=== PATIENT | female | born 1960 | race Caucasian/White ===

== ENCOUNTER 2018-09-23 02:28 | Outpatient (CLI) | payer BC ==
[~2018-09-23 02:28] MED LIST: ATOR10TA87 PO; BENA5TAB7 PO; CITA20TA28 PO; INSU100C4 SUBCUT; LANTUS SUBCUT; LYR25C PO; PIOG15TA8 PO; SYN0.025T PO
== END 2018-09-23 23:59 | disposition home or self-care (01) ==
LOC: DIABETIC 02:28
PROVIDERS: ATTEND Specialist
DX: E11.65 Type 2 diabetes mellitus with hyperglycemia (principal); Z79.4 Long term (current) use of insulin
CPT/HCPCS: G0108

== ENCOUNTER 2019-01-27 04:47 | Outpatient (CLI) | payer BC ==
[2019-04-17] MEDS ORDERED: GLYB5TAB7 PO (10:40)
[2019-04-17] MEDS ORDERED: DULA1.5P SQ (10:40)
[2019-04-17] MEDS ORDERED: ROSU40TA PO (10:40)
[2019-04-17] MEDS ORDERED: CANA100T PO (10:40)
[2019-04-17] MEDS ORDERED: LANTUS SQ (10:40)
[2019-04-17] MEDS ORDERED: PANT-47 PO (10:40)
[2019-04-17] MEDS ORDERED: DULO-31 PO (10:40)
== END 2019-01-27 23:59 | disposition home or self-care (01) ==
LOC: DIABETIC 04:47
PROVIDERS: ATTEND Specialist
DX: E11.65 Type 2 diabetes mellitus with hyperglycemia (principal); Z79.4 Long term (current) use of insulin; Z79.899 Other long term (current) drug therapy
CPT/HCPCS: G0108

== ENCOUNTER 2019-04-24 05:14 | Day surgery (SDC) | payer BC ==
[2019-04-17 10:44] LABS: BASOPHILS # (AUTO) 0.1 X10'3 (0-0.2); BASOPHILS % (AUTO) 1.1 % (0-1); EOSINOPHILS # (AUTO) 0.2 X10'3 (0-0.9); EOSINOPHILS % (AUTO) 2.5 % (0-6); LYMPHOCYTES # (AUTO) 1.6 X10'3 (1.1-4.8); LYMPHOCYTES % (AUTO) 26.8 % (21-51); MEAN CORPUSCULAR HEMOGLOBIN 31.7 PG (27.0-31.0); MEAN CORPUSCULAR HGB CONC 33.1 g/dL (33.0-36.5); MEAN CORPUSCULAR VOLUME 95.8 FL (78-98); MEAN PLATELET VOLUME 8.6 FL (7.4-10.4); MONOCYTES # (AUTO) 0.4 X10'3 (0-0.9); MONOCYTES % (AUTO) 6.5 % (2-12); NEUTROPHILS # (AUTO) 3.8 X10'3 (1.8-7.7); NEUTROPHILS % (AUTO) 63.1 % (42-75); PRE OP HEMOGLOBIN 13.6 g/dL (12.0-16.0); PRE OP PLATELET COUNT 256 X10'3 (140-440); RED BLOOD COUNT 4.27 X10'6 (4.20-5.60); RED CELL DISTRIBUTION WIDTH 14.3 % (11.5-14.5)
[2019-04-17 11:02] LABS: ALBUMIN 4.2 G/DL (3.4-5.0); ALKALINE PHOSPHATASE 73 IU/L (46-116); BLOOD UREA NITROGEN 16 MG/DL (7-18); BUN/CREATININE RATIO 17.4 (6.6-38.0); CALCIUM 9.3 MG/DL (8.5-10.1); CHLORIDE 101 MMOL/L (99-107); CREATININE 0.92 MG/DL (0.40-0.90); PRE OP ALT 30 U/L (30-65); PRE OP ANION GAP 11 (8-16); PRE OP AST 25 U/L (10-37); PRE OP BILIRUB, TOTAL 0.5 MG/DL (0.0-1.0); PRE OP POTASSIUM 3.7 MMOL/L (3.4-5.1); PRE OP SODIUM 139 MMOL/L (135-145); TOTAL CARBON DIOXIDE 26.6 MMOL/L (24-32); TOTAL PROTEIN 8.3 G/DL (6.4-8.2); eGFR 62 ML/MIN
[2019-04-17 11:04] LABS: PRE OP GLUCOSE 47 MG/DL (70-104)
[~2019-04-24] VITALS: Ht 157.5 cm; Wt 99.2 kg
[2019-04-24] VITALS (7 sets, daily range): BP systolic 107–119; BP diastolic 61–85
[~2019-04-24 05:14] MED LIST changes: -ATOR10TA87 PO; +CANA100T PO; -CITA20TA28 PO; +DULA1.5P SQ; +DULO-31 PO; +GLYB5TAB7 PO; -INSU100C4 SUBCUT; +LANTUS SQ; -LANTUS SUBCUT; -LYR25C PO; +PANT-47 PO; +ROSU40TA PO; +ringers solution, lacted 1,000 ML IV SCH
[2019-04-24] MEDS ORDERED: famotidine 20mg tablet PO ONE (05:30)
[2019-04-24] MEDS ORDERED: cefazolin/dext.iso 2gm/50ml 50 ML IV ONE (05:30)
[2019-04-24] MEDS ORDERED: LIDOcaine 1% (10mg/ml) 2ml vial ONE (05:50)
[2019-04-24] MEDS ORDERED: BUPIVAcaine/PF 2.5mg/ml (0.25%) 10ml vial ONE (07:11)
[2019-04-24] MEDS ORDERED: LIDOcaine 1% 30ml preserv. free vial ONE (07:36)
[2019-04-24] MEDS ORDERED: MIDAZolam 5mg/5ml vial ONE (07:37)
[2019-04-24] MEDS ORDERED: fentaNYL/PF 50MCG/1 ML 2ML syringe ONE (07:37)
[2019-04-24] MEDS ORDERED: ketorolac trometh. 30mg/ml inj. ONE (07:47)
--- NOTE | 2019-04-24 08:09 | NUR ---
Received from OR via [facility], accompanied by Anesthesiologist DR ESPINOZA and report given by Anesthesiologist. PT DROWSY, DENIES PAIN, LEFT HAND W/AMADEO WRAP COVERING INCISION, CDI. 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 Addendum: 04/24/19 at 0823 by Gifty Crook RN Amended: Links added.
[2019-04-24] MEDS ORDERED: ringers solution, lacted 1,000 ML IV SCH (08:12)
[2019-04-24] MEDS ORDERED: ondansetron/PF 4mg/2ml inj IV PRN (08:15)
[2019-04-24] MEDS ORDERED: morphine 4 MG/ML inj SYRINge IV PRN ×2 (08:15)
[2019-04-24] MEDS ORDERED: meperidine/PF 25mg/ml syringe IV PRN ×3 (08:15)
[2019-04-24] MEDS ORDERED: proCHLORperazine 10 MG/2 ml inj IV PRN (08:15)
--- NOTE | 2019-04-24 09:09 | NUR ---
D/C INSTRUCTIONS GIVEN AND GONE OVER W/PT WHO VERBALIZED UNDERSTANDING, PT D/CD TO HOME W/FRIEND VIA W/C TO PRIVATE VEHICLE W/O INCIDENT. Addendum: 04/24/19 at 0926 by Gifty Crook RN Amended: Links added.
== END 2019-04-24 09:09 | disposition home or self-care (01) ==
LOC: PAS 05:14
PROVIDERS: ATTEND Orthopaedic Surgery Hand Surgery
DX: M65.332 Trigger finger, left middle finger (principal); M65.342 Trigger finger, left ring finger; I10 Essential (primary) hypertension; K21.9 Gastro-esophageal reflux disease without esophagitis; F32.9 Major depressive disorder, single episode, unspecified; E11.40 Type 2 diabetes mellitus with diabetic neuropathy, unspecified; E66.9 Obesity, unspecified; Z68.41 Body mass index [BMI] 40.0-44.9, adult; Z98.890 Other specified postprocedural states; Z79.4 Long term (current) use of insulin; Z79.899 Other long term (current) drug therapy; Z98.41 Cataract extraction status, right eye; Z98.42 Cataract extraction status, left eye
CPT/HCPCS: 26055; 36415; 80053; 82948; 85025; 93005; J1885; J2001; J2250; J3010; J3490; A4215; J7120

== ENCOUNTER 2022-06-27 12:52 | Inpatient (IN) | payer BC ==
[~2022-06-27] VITALS: Ht 157.5 cm; Wt 86.4 kg
[~2022-06-27 12:52] MED LIST changes: +AMOX-580 PO; +BENA5TAB39 PO; -BENA5TAB7 PO; +METF500T PO; +POTA-206 PO; -ringers solution, lacted 1,000 ML IV SCH
[2022-06-27] MEDS ORDERED: ondansetron/PF 4mg/2ml inj IV ONE (19:05)
[2022-06-27 19:33] LABS: BASOPHILS # (AUTO) 0.1 X10'3 (0-0.2); BASOPHILS % (AUTO) 0.9 % (0-1); EOSINOPHILS # (AUTO) 0.2 X10'3 (0-0.9); EOSINOPHILS % (AUTO) 2.6 % (0-6); HEMATOCRIT 41.9 % (35.0-45.0); HEMOGLOBIN 13.4 g/dl (12.0-16.0); LYMPHOCYTES # (AUTO) 1.1 X10'3 (1.1-4.8); LYMPHOCYTES % (AUTO) 15.3 % (21-51); MEAN CORPUSCULAR HEMOGLOBIN 31.4 PG (27.0-31.0); MEAN CORPUSCULAR HGB CONC 32.1 g/dL (33.0-36.5); MONOCYTES # (AUTO) 0.5 X10'3 (0-0.9); MONOCYTES % (AUTO) 6.9 % (2-12); NEUTROPHILS # (AUTO) 5.5 X10'3 (1.8-7.7); NEUTROPHILS % (AUTO) 74.3 % (42-75); PLATELET COUNT 231 X10'3 (140-440); RED BLOOD COUNT 4.28 X10'6 (4.20-5.60); RED CELL DISTRIBUTION WIDTH 18.2 % (11.5-14.5); WHITE BLOOD COUNT 7.4 X10'3 (4.5-11.0)
--- NOTE | 2022-06-27 19:34 | NUR ---
Patient unable to leave urine sample at 1934. Will try after IV fluids given. Verbal order for IV insertion and fluids, 1 liter per provider.
--- NOTE | 2022-06-27 19:35 | NUR ---
Ok to speak to patients and daughter about patient condition, per patient 06/27/2022 @[id number].
[2022-06-27 19:47] LABS: CHLORIDE 92 MMOL/L (99-107); GLUCOSE 173 MG/DL (70-104); SODIUM 130 MMOL/L (135-145)
[2022-06-27 19:48] LABS: ALANINE AMINOTRANSFERASE 49 U/L (12-78); ALBUMIN 3.7 G/DL (3.4-5.0); ALBUMIN/GLOBULIN RATIO 0.9 (1.1-1.5); ALKALINE PHOSPHATASE 110 IU/L (46-116); ANION GAP 23 (8-16); ASPARTATE AMINO TRANSFERASE 42 U/L (10-37); BILIRUBIN,TOTAL 0.7 MG/DL (0.1-1.0); BLOOD UREA NITROGEN 14 MG/DL (7-18); BUN/CREATININE RATIO 10.1 (6.6-38.0); CALCIUM 9.5 MG/DL (8.5-10.1); CREATININE 1.39 MG/DL (0.40-0.90); LIPASE < 50 U/L (73-393); TOTAL PROTEIN 7.9 G/DL (6.4-8.2); eGFR 38 ML/MIN
[2022-06-27] MEDS ORDERED: ondansetron 4mg rapidly disintigrating tab PO ONE (20:05)
[2022-06-27 20:14] LABS: ABG BASE EXCESS -8.9 mmol/L (-2.0-2.0); ABG HCO3 15.5 mmol/L (22.0-26.0); ABG OXYGEN SATURATION 95.7 % (94-97); ABG PCO2 (T) 29.3 mmHg (32.0-45.0); ABG PO2 (T) 88.5 mmHg (75.0-100.0); ALLEN'S TEST POSITIVE; FCOHb 0.5 % (0.0-3.9); FMetHb 0.3 % (0.0-1.5); FO2Hb 94.9 % (94-97); TOTAL HEMOGLOBIN 13.3 G/dl (12.0-16.0)
--- NOTE | 2022-06-27 20:14 | NUR ---
Violeta Walls, sister Deangelo Worley, brother
[2022-06-27] MEDS ORDERED: normal saline 1000ML IV soln IV ONE (20:35)
[2022-06-27 21:43] LABS: COLOR,URINE YELLOW (Yellow); GLUCOSE, URINE >=1000 mg/dl (Neg); KETONES,URINE 40 mg/dl (Neg); LEUKOCYTE ESTERASE ,URINE NEGATIVE (Neg); NITRITES, URINE NEGATIVE (Neg); OCCULT BLOOD,URINE TRACE-INTACT (Neg); PROTEIN,URINE NEGATIVE (Neg); UROBILINOGEN,URINE 0.2 E.U/dL (0.2-1.0)
[2022-06-27 21:54] LABS: UA COLLECTION TYPE STRAIGHT CATH
[2022-06-27 21:56] LABS: BACTERIA,URINE FEW /HPF (Neg); SQUAMOUS EPITHELIAL CELL,UR FEW /LPF (FEW)
[2022-06-27 21:57] LABS: CLARITY,URINE SLIGHTLY CLOUDY (Clear)
[2022-06-27 21:59] LABS: YEAST FEW /HPF (NEGATIVE)
[2022-06-27] MEDS ORDERED: cephalexin 250mg capsule PO ONE (22:20)
[2022-06-27] MEDS ORDERED: ringers solution, lactated 1000ml IV soln IV ONE (22:20)
[2022-06-27 23:49] LABS: ALANINE AMINOTRANSFERASE 36 U/L (12-78); ALBUMIN 3.2 G/DL (3.4-5.0); ALBUMIN/GLOBULIN RATIO 0.9 (1.1-1.5); ALKALINE PHOSPHATASE 99 IU/L (46-116); ANION GAP 20 (8-16); ASPARTATE AMINO TRANSFERASE 42 U/L (10-37); BILIRUBIN,TOTAL 0.6 MG/DL (0.1-1.0); BLOOD UREA NITROGEN 14 MG/DL (7-18); BUN/CREATININE RATIO 11.3 (6.6-38.0); CALCIUM 8.4 MG/DL (8.5-10.1); CHLORIDE 98 MMOL/L (99-107); CREATININE 1.24 MG/DL (0.40-0.90); GLUCOSE 201 MG/DL (70-104); POTASSIUM 4.2 MMOL/L (3.5-5.1); SODIUM 135 MMOL/L (135-145); TOTAL CARBON DIOXIDE 17.2 MMOL/L (24-32); TOTAL PROTEIN 6.8 G/DL (6.4-8.2); eGFR 44 ML/MIN
[2022-06-28] MEDS ORDERED: potassium Cl 20 mEq SR tablet PO PRN (02:15)
[2022-06-28] MEDS ORDERED: mag hydrox/Alum hydrox/simeth 30ml oral suspension PO PRN (02:15)
[2022-06-28] MEDS ORDERED: magnesium 4gm in 100ml NS 100 ML IV PRN (02:15)
[2022-06-28] MEDS ORDERED: potassium Cl 40MEQ/1/2NS 520ml 520 ML IV PRN (02:15)
[2022-06-28] MEDS ORDERED: magnesium hydroxide 30ml (MOM) UD suspension PO PRN (02:15)
[2022-06-28] MEDS ORDERED: magnesium Cl slow-release 64mg tablet PO PRN (02:15)
[2022-06-28] MEDS ORDERED: acetaminophen 325mg tablet PO PRN (02:15)
[2022-06-28] MEDS ORDERED: glucagon, human recombinant 1mg kit SUBCUT PRN (02:20)
[2022-06-28] MEDS ORDERED: DEXTROSE 15 GM of carb/4 tabs (each vial/BOTTLE has 4 tablets) PO PRN ×2 (02:20)
[2022-06-28] MEDS ORDERED: MESSAGE TO PHARMACY PO ONE (02:20)
[2022-06-28] MEDS ORDERED: dextrose 50%-water 50ml dispensing syringe IV PRN ×2 (02:20)
[2022-06-28] MEDS: normal saline 1000ml 1,000 ML IV SCH ×3 (02:49→23:15)
[2022-06-28 03:53] LABS: POTASSIUM 4.1 MMOL/L (3.5-5.1)
[2022-06-28 03:54] LABS: MAGNESIUM 1.6 MG/DL (1.5-2.4)
[2022-06-28] MEDS ORDERED: SEMA1PEN3 SUBCUT (04:59)
[2022-06-28] MEDS ORDERED: PROC10TA10 PO (04:59)
[2022-06-28] MEDS ORDERED: EMPA1TAB7 PO (04:59)
[2022-06-28] MEDS ORDERED: CYAN500T71 PO (04:59)
[2022-06-28] MEDS: ondansetron/PF 4mg/2ml inj IV PRN (07:49)
[2022-06-28 08:00] VITALS: BP 106/65
[2022-06-28] MEDS: docusate sod 100mg capsule PO SCH ×2 (08:00→20:00)
[2022-06-28] MEDS: heparin, porcine 5000 units/ml vial SQ SCH ×2 (08:00→20:17)
[2022-06-28] MEDS: K and/or MAG REPLACEMENT MC SCH ×2 (08:00→19:56)
[2022-06-28 11:14] LABS: BASOPHILS # (AUTO) 0.1 X10'3 (0-0.2); EOSINOPHILS # (AUTO) 0.2 X10'3 (0-0.9); EOSINOPHILS % (AUTO) 4.6 % (0-6); HEMATOCRIT 31.7 % (35.0-45.0); HEMOGLOBIN 10.4 g/dl (12.0-16.0); LYMPHOCYTES # (AUTO) 1.1 X10'3 (1.1-4.8); LYMPHOCYTES % (AUTO) 20.8 % (21-51); MEAN CORPUSCULAR HEMOGLOBIN 31.7 PG (27.0-31.0); MEAN CORPUSCULAR HGB CONC 32.8 g/dL (33.0-36.5); MEAN CORPUSCULAR VOLUME 96.5 FL (78-98); MEAN PLATELET VOLUME 8.9 FL (7.4-10.4); MONOCYTES # (AUTO) 0.4 X10'3 (0-0.9); NEUTROPHILS # (AUTO) 3.5 X10'3 (1.8-7.7); NEUTROPHILS % (AUTO) 65.6 % (42-75); PLATELET COUNT 197 X10'3 (140-440); RED BLOOD COUNT 3.28 X10'6 (4.20-5.60); RED CELL DISTRIBUTION WIDTH 18.2 % (11.5-14.5); WHITE BLOOD COUNT 5.4 X10'3 (4.5-11.0)
[2022-06-28 11:30] LABS: ALANINE AMINOTRANSFERASE 34 U/L (12-78); ALBUMIN 2.8 G/DL (3.4-5.0); ALBUMIN/GLOBULIN RATIO 0.9 (1.1-1.5); ALKALINE PHOSPHATASE 83 IU/L (46-116); ANION GAP 18 (8-16); ASPARTATE AMINO TRANSFERASE 30 U/L (10-37); BILIRUBIN,TOTAL 0.5 MG/DL (0.1-1.0); BLOOD UREA NITROGEN 10 MG/DL (7-18); BUN/CREATININE RATIO 8.7 (6.6-38.0); CALCIUM 8.1 MG/DL (8.5-10.1); CHLORIDE 99 MMOL/L (99-107); CREATININE 1.15 MG/DL (0.40-0.90); GLUCOSE 188 MG/DL (70-104); POTASSIUM 3.9 MMOL/L (3.5-5.1); SODIUM 135 MMOL/L (135-145); TOTAL CARBON DIOXIDE 18.3 MMOL/L (24-32); eGFR 48 ML/MIN
[2022-06-28] MEDS ORDERED: scopolamine 1.5mg patch.TD72 (72-hour patch) TD SCH (13:15)
[2022-06-28] MEDS ORDERED: scopolamine 1mg/72 hr patch TD SCH (13:35)
[2022-06-28 15:00] VITALS: BP 102/62
--- NOTE | 2022-06-28 17:48 | NUR ---
pt was scheduled to have her chemo treatment today as an outpatient. confirmed with pt's spouse that he called and notified them that pt is in the hospital and unable to make it to her appointment.
[2022-06-28 18:00] VITALS: BP 98/65
--- NOTE | 2022-06-28 18:21 | NUR ---
Patient in room PCU 3018. I have received report from LIZETH XAVIER and had the opportunity to ask questions and assume patient care.
[2022-06-28] MEDS: insulin Lispro (HumaLOG) vial - multi-dose SQ SCH (19:11)
[2022-06-28] MEDS: proCHLORperazine 10 MG/2 ml inj IV PRN (20:20)
[2022-06-28] MEDS ORDERED: insulin glargine (Lantus) pen - multi-dose SQ SCH (21:00)
[2022-06-28] MEDS: insulin glargine (Lantus) pen - multi-dose SQ SCH (21:46)
[2022-06-28 22:00] VITALS: BP 104/69
[2022-06-29 02:00] VITALS: BP 109/54
[2022-06-29] MEDS: diphenhydrAMINE 25mg capsule PO PRN ×2 (03:21→18:54)
[2022-06-29 03:54] LABS: BASOPHILS # (AUTO) 0.1 X10'3 (0-0.2); MONOCYTES # (AUTO) 0.3 X10'3 (0-0.9); RED CELL DISTRIBUTION WIDTH 18.1 % (11.5-14.5)
[2022-06-29 03:55] LABS: % IRON SATURATION 26 % (11-46); BASOPHILS % (AUTO) 1.4 % (0-1); EOSINOPHILS # (AUTO) 0.2 X10'3 (0-0.9); EOSINOPHILS % (AUTO) 4.9 % (0-6); HEMOGLOBIN 9.9 g/dl (12.0-16.0); IRON 60 UG/DL (49-151); LYMPHOCYTES # (AUTO) 1.3 X10'3 (1.1-4.8); LYMPHOCYTES % (AUTO) 29.5 % (21-51); MEAN CORPUSCULAR HEMOGLOBIN 31.4 PG (27.0-31.0); MEAN CORPUSCULAR HGB CONC 32.9 g/dL (33.0-36.5); MEAN CORPUSCULAR VOLUME 95.5 FL (78-98); MEAN PLATELET VOLUME 8.9 FL (7.4-10.4); MONOCYTES % (AUTO) 6.2 % (2-12); NEUTROPHILS # (AUTO) 2.5 X10'3 (1.8-7.7); PLATELET COUNT 176 X10'3 (140-440); RED BLOOD COUNT 3.14 X10'6 (4.20-5.60); TOTAL IRON BINDING CAPACITY 227 UG/DL (259-388); WHITE BLOOD COUNT 4.2 X10'3 (4.5-11.0)
[2022-06-29 03:57] LABS: ALANINE AMINOTRANSFERASE 23 U/L (12-78); ALBUMIN 2.7 G/DL (3.4-5.0); ALBUMIN/GLOBULIN RATIO 0.9 (1.1-1.5); ALKALINE PHOSPHATASE 79 IU/L (46-116); ANION GAP 12 (8-16); ASPARTATE AMINO TRANSFERASE 29 U/L (10-37); BILIRUBIN,TOTAL 0.6 MG/DL (0.1-1.0); BLOOD UREA NITROGEN 6 MG/DL (7-18); BUN/CREATININE RATIO 5.8 (6.6-38.0); CALCIUM 7.8 MG/DL (8.5-10.1); CHLORIDE 102 MMOL/L (99-107); CREATININE 1.04 MG/DL (0.40-0.90); GLUCOSE 102 MG/DL (70-104); MAGNESIUM 1.3 MG/DL (1.5-2.4); POTASSIUM 3.1 MMOL/L (3.5-5.1); SODIUM 135 MMOL/L (135-145); TOTAL CARBON DIOXIDE 20.9 MMOL/L (24-32); TOTAL PROTEIN 5.6 G/DL (6.4-8.2); eGFR 53 ML/MIN
[2022-06-29] MEDS: potassium Cl 20 mEq SR tablet PO PRN ×2 (04:07→19:07)
[2022-06-29 06:00] VITALS: BP 100/60
--- NOTE | 2022-06-29 06:16 | NUR ---
Problems reprioritized. Patient report given, questions answered & plan of care reviewed with LIZETH Gann.
--- NOTE | 2022-06-29 06:26 | NUR ---
Patient in room PCU 3016B. I have received report from Janice STANLEY and had the opportunity to ask questions and assume patient care. Pt is laying semi fowlers in bed. Pt on RA. No s/s of distress. No c/o pain at this time. Pt has NS @100ml/hr running into R chest port. BLL, call light within reach, frequently used items in reach, frequent rounding, party plan sales agent socks on. Will continue to monitor.
[2022-06-29] MEDS: proCHLORperazine 10 MG/2 ml inj IV PRN (07:57)
[2022-06-29] MEDS: cyanocobalamin 500mcg tablet PO SCH (07:59)
[2022-06-29] MEDS: atorvastatin 20mg tablet PO SCH (08:00)
[2022-06-29] MEDS: K and/or MAG REPLACEMENT MC SCH ×2 (08:00→20:33)
[2022-06-29] MEDS: docusate sod 100mg capsule PO SCH ×2 (08:00→20:00)
[2022-06-29] MEDS: pantoprazole 40mg Tablet.DR PO SCH (08:00)
[2022-06-29] MEDS: levoTHYROXINE 25mcg tablet PO SCH (08:00)
[2022-06-29] MEDS: heparin, porcine 5000 units/ml vial SQ SCH ×2 (08:01→19:06)
[2022-06-29] MEDS: normal saline 1000ml 1,000 ML IV SCH ×2 (08:15→19:22)
[2022-06-29 11:00] VITALS: BP 98/62
[2022-06-29 12:13] LABS: CLARITY,URINE CLOUDY (Clear); COLOR,URINE YELLOW (Yellow); GLUCOSE, URINE 500 mg/dl (Neg); KETONES,URINE 40 mg/dl (Neg); LEUKOCYTE ESTERASE ,URINE SMALL (Neg); NITRITES, URINE NEGATIVE (Neg); OCCULT BLOOD,URINE LARGE (Neg); PROTEIN,URINE 100 mg/dl (Neg); UROBILINOGEN,URINE 0.2 E.U/dL (0.2-1.0)
[2022-06-29 12:14] LABS: UA COLLECTION TYPE CLN CATCH MIDSTREAM
[2022-06-29 12:23] LABS: WBC,URINE TNTC /HPF (0-4)
[2022-06-29 12:24] LABS: MUCUS STRANDS NONE SEEN /LPF (Neg); SQUAMOUS EPITHELIAL CELL,UR FEW /LPF (FEW)
[2022-06-29 12:35] LABS: BACTERIA,URINE 1+ /HPF (Neg)
[2022-06-29 12:36] LABS: WBC CLUMPS,URINE MODERATE /HPF (NEGATIVE)
--- NOTE | 2022-06-29 12:45 | NUR ---
PAGER ID: [phone] MESSAGE: Nancy Valdez [phone] : UA has resulted, labs are in. -[place] EXT [id number]
--- NOTE | 2022-06-29 12:49 | NUR ---
Malnutrition consult: Pt seen at bedside, reports ~20 lb wt loss in 2-3 months r/t cancer tx, states UBW 220 lbs with most recent wt being 190 lbs (taken 06/25 or per pt). Despite reported pt loss pt states she was eating well RECORDS TECH. Pt with no visible fat or muscle wasting, decreased muscle strength, or edema. Pt currently lacks a minimum of two criteria for malnutrition though at a high risk r/t CA. Pt currently reports a low appetite and requests Ensure TID, to be sent pending physician approval in EMR. Pt denies food allergies, food preferences, difficulty chewing/swallowing, or constipation/diarrhea. Per pt LBM today. Pt provided with ONS coupons and RD contact information and encouraged to reach out if needed. Will remain available. Recommendations: 1) Liberalize to regular diet if PO intake does not improve 2) Ensure Plus HP TID, pending physician approval in EMR 3) Scaled weight this admit; subsequent weekly scaled weights Addendum: 06/29/22 at [address] Amended: Links added.
[2022-06-29] MEDS: LACTOSE-REDUCED FOOD (ENSURE PLUS HP) 237 ML LIQUID PO SCH ×2 (13:00→18:00)
[2022-06-29] MEDS: insulin Lispro (HumaLOG) vial - multi-dose SQ SCH ×2 (14:03→19:02)
[2022-06-29] MEDS ORDERED: CefTRIAXone/D5W-Rocephin 1gm 50 ML IV ONE (14:10)
[2022-06-29 18:00] VITALS: BP 96/42
--- NOTE | 2022-06-29 18:33 | NUR ---
Problems reprioritized. Patient report given, questions answered & plan of care reviewed with Ramonita STANLEY.
[2022-06-29] MEDS: insulin glargine (Lantus) pen - multi-dose SQ SCH (21:26)
[2022-06-29 22:00] VITALS: BP 124/72
[2022-06-30 02:00] VITALS: BP 96/51
[2022-06-30] MEDS: potassium Cl 20 mEq SR tablet PO PRN ×2 (02:22→10:41)
[2022-06-30] MEDS: normal saline 1000ml 1,000 ML IV SCH ×2 (04:15→05:24)
[2022-06-30 06:00] VITALS: BP 97/55
--- NOTE | 2022-06-30 06:38 | NUR ---
Problems reprioritized. Patient report given, questions answered & plan of care reviewed with Isaac STANLEY.
[2022-06-30] MEDS: LACTOSE-REDUCED FOOD (ENSURE PLUS HP) 237 ML LIQUID PO SCH ×2 (07:44→13:46)
[2022-06-30] MEDS: docusate sod 100mg capsule PO SCH (07:44)
[2022-06-30] MEDS: levoTHYROXINE 25mcg tablet PO SCH (07:45)
[2022-06-30] MEDS: pantoprazole 40mg Tablet.DR PO SCH (07:45)
[2022-06-30] MEDS: cyanocobalamin 500mcg tablet PO SCH (07:45)
[2022-06-30] MEDS: atorvastatin 20mg tablet PO SCH (07:45)
[2022-06-30] MEDS: heparin, porcine 5000 units/ml vial SQ SCH (07:46)
[2022-06-30] MEDS: ondansetron/PF 4mg/2ml inj IV PRN (07:54)
[2022-06-30] MEDS ORDERED: CefTRIAXone/D5W-Rocephin 1gm 50 ML IV SCH (08:00)
[2022-06-30 10:16] LABS: BASOPHILS % (AUTO) 0.7 % (0-1); EOSINOPHILS # (AUTO) 0.1 X10'3 (0-0.9); EOSINOPHILS % (AUTO) 3.3 % (0-6); HEMATOCRIT 28.8 % (35.0-45.0); HEMOGLOBIN 9.4 g/dl (12.0-16.0); LYMPHOCYTES # (AUTO) 0.6 X10'3 (1.1-4.8); LYMPHOCYTES % (AUTO) 13.1 % (21-51); MEAN CORPUSCULAR HEMOGLOBIN 31.1 PG (27.0-31.0); MEAN CORPUSCULAR HGB CONC 32.5 g/dL (33.0-36.5); MEAN CORPUSCULAR VOLUME 95.8 FL (78-98); MEAN PLATELET VOLUME 8.8 FL (7.4-10.4); MONOCYTES # (AUTO) 0.2 X10'3 (0-0.9); MONOCYTES % (AUTO) 4.8 % (2-12); NEUTROPHILS # (AUTO) 3.5 X10'3 (1.8-7.7); NEUTROPHILS % (AUTO) 78.1 % (42-75); PLATELET COUNT 130 X10'3 (140-440); RED CELL DISTRIBUTION WIDTH 17.8 % (11.5-14.5); WHITE BLOOD COUNT 4.5 X10'3 (4.5-11.0)
[2022-06-30 10:29] LABS: ALANINE AMINOTRANSFERASE 25 U/L (12-78); ALBUMIN 2.4 G/DL (3.4-5.0); ALBUMIN/GLOBULIN RATIO 0.8 (1.1-1.5); ALKALINE PHOSPHATASE 70 IU/L (46-116); ANION GAP 9 (8-16); ASPARTATE AMINO TRANSFERASE 22 U/L (10-37); BILIRUBIN,TOTAL 0.3 MG/DL (0.1-1.0); BLOOD UREA NITROGEN 4 MG/DL (7-18); BUN/CREATININE RATIO 3.9 (6.6-38.0); CALCIUM 7.3 MG/DL (8.5-10.1); CHLORIDE 104 MMOL/L (99-107); CREATININE 1.03 MG/DL (0.40-0.90); GLUCOSE 301 MG/DL (70-104); POTASSIUM 3.4 MMOL/L (3.5-5.1); SODIUM 133 MMOL/L (135-145); TOTAL CARBON DIOXIDE 19.8 MMOL/L (24-32); TOTAL PROTEIN 5.4 G/DL (6.4-8.2); eGFR 54 ML/MIN
--- NOTE | 2022-06-30 10:37 | NUR ---
paged Dr. Martinez re: Pt's Mag is 1.0. Do you want me to give IV and PO?
[2022-06-30] MEDS: K and/or MAG REPLACEMENT MC SCH (10:38)
[2022-06-30] MEDS ORDERED: POTA-197 PO (12:46)
[2022-06-30] MEDS ORDERED: METF750T46 PO (12:46)
[2022-06-30] MEDS ORDERED: SCOPOLAMINE TD (12:46)
[2022-06-30] MEDS ORDERED: LEVO-65 PO (12:46)
[2022-06-30] MEDS ORDERED: MAGN64TA10 PO (12:46)
[2022-06-30] MEDS: insulin Lispro (HumaLOG) vial - multi-dose SQ SCH (13:46)
[2022-06-30] MEDS ORDERED: heparin sodium, porcine/PF 100unit/ml 5ML syringe IV ONE (13:55)
--- NOTE | 2022-06-30 14:49 | NUR ---
pt discharged in stable condition via wheelchair to in lobby. port de-accessed. Tele removed. discharge instructions and education reviewed with pt. all questions/concerns addressed.
== END 2022-06-30 15:14 | disposition home or self-care (01) | DRG 640 ==
LOC: ER 12:52 → ED HOLD 06-28 02:14 → PCU 3S 06-28 07:44
PROVIDERS: ADMIT Internal Medicine; ATTEND Family Medicine
DX: E87.29 Other acidosis (principal); N17.0 Acute kidney failure with tubular necrosis; N39.0 Urinary tract infection, site not specified; E86.0 Dehydration; Z20.822 Contact with and (suspected) exposure to COVID-19; C43.9 Malignant melanoma of skin, unspecified; E83.42 Hypomagnesemia; E87.6 Hypokalemia; D63.8 Anemia in other chronic diseases classified elsewhere; E03.9 Hypothyroidism, unspecified; E11.9 Type 2 diabetes mellitus without complications; Z79.4 Long term (current) use of insulin; Z79.84 Long term (current) use of oral hypoglycemic drugs; Z79.899 Other long term (current) drug therapy
CPT/HCPCS: 36415; 36600; 80053; 81001; 82803; 82948; 83540; 83550; 83605; 83690; 83735; 84132; 85018; 85025; 87081; 87088; 87811; 99285; G0378; J0696; J0780; J1642; J1644; J1815; J2405; J3475; J3490; J7030; J7040; J7120; Q0163